=== PATIENT | female | born 1990 | race Caucasian/White ===

== ENCOUNTER → 2018-02-15 15:45 | Outpatient (CLI) | payer MEDICAID, SELFPAY ==
[2018-02-15 16:09] LABS: COC Drug Screen Collection Only
== END ==
DX: Z79.899 Other long term (current) drug therapy (principal)

== ENCOUNTER 2019-10-24 14:22 | Emergency (ER) | payer MEDICAID, SELFPAY ==
[2019-10-24 15:07] VITALS: BP 119/76; PULSE 76; RESP 19; TEMP 36.8; O2SAT 100; BMI 24.0
--- NOTE | 2019-10-24 15:22 | HMH.EDUTC ---
[facility] Disposition Clinical Impression: Left otitis media Qualifiers: Otitis media type: suppurative Chronicity: acute Recurrence: non-recurrent Spontaneous tympanic membrane rupture: without spontaneous rupture Qualified Code(s): H66.002 - Acute suppurative otitis media without spontaneous rupture of ear drum, left ear Disposition: Home, Self-Care Condition on Discharge: Good Instructions: DI for Otitis Media (Middle Ear Infection)-Child Prescriptions: Amoxicillin [Amoxicillin 500mg Tab] 500 mg PO BID 10 Days #20 tab Transmission Status: Pending to Pending Sale To [facility] predniSONE [Deltasone 20mg tablet] 20 mg PO BID 30 Days #60 tab predniSONE [Prednisone 20mg Tab] 20 mg PO BID 5 Days #10 tab Transmission Status: Pending to Pending Sale To [facility] Referrals: Anel Mehta [Primary Care Provider] - Time of Disposition: 15:26 Medical Decision Making - Glynn Inquiry Pt receiving controlled substance: No Vital Signs: 10/24/19 15:07 Temperature 98.2 F Temperature Source Oral Pulse Rate [Right Brachial] 76 Respiratory Rate 19 Blood Pressure [Right Arm] 119/76 Blood Pressure Mean [Right Arm] 90 Blood Pressure Source [Right Arm] Automatic Cuff Blood Pressure Position [Right Arm] Sitting 02 Sat by Pulse Oximetry 100 Oxygen Delivery Method Room Air [facility] HPI - General Stated complaint: possible ear infection L ear/sinus problems Time Seen by Provider: 10/24/19 15:23 Mode of Arrival: Ambulatory Source of Information: Patient Limitations: No Limitations Description of Symptoms (Recalled from Triage Doc. by RN): PATIENT C/O LEFT EAR PAIN X 3 WEEKS HEENT Symptoms (Recalled from RN notes): Yes Resp Symptoms (Recalled from RN notes): No Skin Symptoms (Recalled from RN notes): No MS Symptoms (Recalled from RN notes): No Functional Status (Recalled from RN notes): WNL - History of Present Illness Provider Complaint: Left ear pain X 3 weeks. Low grade fever. Can't hear out of left ear. No vomiting or diarrhea. Some sinus pain and pressure. No sore throat. Onset (ago): week(s) (3) Relieving factors: none Exacerbating factors: none Associated symptoms: denies other symptoms Treatments prior to arrival: none - Related Data Previous Rx's Medication Instructions Recorded Amoxicillin [Amoxicillin 500mg Tab] 500 mg PO BID 10 Days #20 tab 10/24/19 predniSONE [Deltasone 20mg 20 mg PO BID 30 Days #60 tab 10/24/19 tablet] predniSONE [Prednisone 20mg 20 mg PO BID 5 Days #10 tab 10/24/19 Tab] Allergies Allergy/AdvReac Type Severity Reaction Status Date / Time hydrocodone [HYDROCODONE] Allergy Unknown THROAT Unverified 12/31/17 08:03 SWELLING Sulfa (Sulfonamide Allergy Unknown Unverified 12/31/17 08:03 Antibiotics) [SULFA (SULFONAMIDE ANTIBIOTICS)] sulfamethoxazole Allergy Unknown ITCHING Unverified 12/31/17 08:03 [From BACTRIM] trimethoprim [From BACTRIM] Allergy Unknown ITCHING Unverified 12/31/17 08:03 - Worker's Comp Is this a Worker's Comp case?: No [facility] History - Hepatitis A Screen Drug use history?: No High risk sexual behaviors?: No History of sexually transmitted infection?: No Currently employed?: No Childcare worker?: No Do you have indoor plumbing?: Yes Do you have electricity?: Yes Attestation statement:: This patient has been screened for Hepatitis A risk factors. I have reviewed the patient's past medical history: Yes - Social History Smoking Status: Current every day smoker Tobacco Type: cigarettes # Packs/Day (cigarettes): 1 Alcohol Intake: never Occupational Status: other ROS Obtained: Yes All systems reviewed & no additional complaints - ENT Ears, Nose, Mouth, and Throat: Reports otalgia, Reports hearing loss Physical Exam - General General appearance: alert, in no apparent distress - Eye Eye exam: Present: PERRL - ENT ENT exam: Present: normal oropharynx - Expanded ENT Exam TM/Canal exam: L
[2019-10-24 15:27] VITALS: BP 119/76; PULSE 76; RESP 19; TEMP 36.8; O2SAT 100
== END 2019-10-24 15:33 | disposition home or self-care (01) ==
PROVIDERS: Emergency Provider Physician Assistant; PCP Family Medicine Addiction Medicine
DX: H66.002 Acute suppurative otitis media without spontaneous rupture of ear drum, left ear (principal); F17.210 Nicotine dependence, cigarettes, uncomplicated; Z79.899 Other long term (current) drug therapy; Z88.2 Allergy status to sulfonamides; Z88.5 Allergy status to narcotic agent; F33.1 Major depressive disorder, recurrent, moderate
CPT/HCPCS: 99201

== ENCOUNTER 2019-11-17 20:14 | Emergency (ER) | payer MEDICAID, SELFPAY ==
[2019-11-17 20:26] VITALS: BP 114/68; PULSE 86; RESP 19; TEMP 36.9; O2SAT 98; BMI 25.7
[2019-11-17 20:28] LABS: UTC Strep Screen (Rapid) Negative (Negative)
--- NOTE | 2019-11-17 20:31 | HMH.EDUTC ---
[facility] Disposition Clinical Impression: Otitis media Qualifiers: Otitis media type: unspecified Laterality: right Qualified Code(s): H66.91 - Otitis media, unspecified, right ear Disposition: Home, Self-Care Condition on Discharge: Good Instructions: Middle Ear Infection, Middle Ear Infections (Alternative Therapy), Cefdinir Additional Instructions: *Monitor Temp, Over the counter Motrin or Tylenol as directed/as needed Tylenol every 4 hours and Motrin every 6 hours (as long as your family doctor has told you that you can take it) for fever or pain. and straight to ER if unable to lower temp less than 101.0 after medication given *Warm salt water gargles may help to soothe the throat *Throat Lozenges *Warm fluids like tea with honey may help to soothe the throat *Sleep elevated *Humidifier/Vaporizer *Flonase 2 sprays in each nostril daily but be aware that it may take 2-3 days before you notice improvement Take medication as prescribed Follow up with Family Doctor if no improvement or any worsening of symptoms Follow up IMMEDIATELY for new or worsening symptoms or no Noticeable improvement over the next 48-72 hours. 911 for difficulty breathing or swallowing Prescriptions: Fluticasone Propionate [Flonase 50mcg nasal spray 16gm] 1 - 2 spr NS DAILY #1 bottle Transmission Status: Pending to [facility] Cefdinir [Omnicef 300mg Capsule] 300 mg PO BID #20 cap Transmission Status: Pending to [facility] Referrals: Anel Mehta [Primary Care Provider] - As needed Forms: Work/School Release Time of Disposition: 20:39 Medical Decision Making - Glynn Inquiry Pt receiving controlled substance: No Glynn was queried for this patient: No Vital Signs: 11/17/19 20:26 Temperature 98.4 F Temperature Source Oral Pulse Rate [Right Brachial] 86 Respiratory Rate 19 Blood Pressure [Right Arm] 114/68 Blood Pressure Mean [Right Arm] 83 Blood Pressure Source [Right Arm] Automatic Cuff Blood Pressure Position [Right Arm] Sitting 02 Sat by Pulse Oximetry 98 Oxygen Delivery Method Room Air - Lab Data Lab results reviewed: Yes: I reviewed the patient's lab results. Lab Results 11/17/19 20:27: Strep Scn Rapid Clinic Negative Orders (Tests/Meds): ORDERS Category Date Time Status Strep Screen Confirmation Stat Micro 11/17/19 20:27 Received [facility] HPI - General Stated complaint: Ear pain, sore throat, nausea Time Seen by Provider: 11/17/19 20:31 Mode of Arrival: Ambulatory Source of Information: Patient Limitations: No Limitations Description of Symptoms (Recalled from Triage Doc. by RN): PATIENT C/O EAR PAIN, SORE THROAT, AND NAUSEA X 1 WEEK HEENT Symptoms (Recalled from RN notes): Yes Resp Symptoms (Recalled from RN notes): No Skin Symptoms (Recalled from RN notes): No MS Symptoms (Recalled from RN notes): No Functional Status (Recalled from RN notes): WNL - History of Present Illness Provider Complaint: Patient states that she has been having pain in her left ear and sore throat for over a week and nausea on and off State that today she had several eppisodes of vomiting and still having pain in her ears so she came in to get checked - Related Data Previous Rx's Medication Instructions Recorded Amoxicillin [Amoxicillin 500mg Tab] 500 mg PO BID 10 Days #20 tab 10/24/19 predniSONE [Deltasone 20mg 20 mg PO BID 30 Days #60 tab 10/24/19 tablet] predniSONE [Prednisone 20mg 20 mg PO BID 5 Days #10 tab 10/24/19 Tab] Cefdinir [Omnicef 300mg Capsule] 300 mg PO BID #20 cap 11/17/19 Fluticasone Propionate [Flonase 1 - 2 spr NS DAILY #1 bottle 11/17/19 50mcg nasal spray 16gm] Allergies Allergy/AdvReac Type Severity Reaction Status Date / Time hydrocodone [HYDROCODONE] Allergy Unknown THROAT Unverified 12/31/17 08:03 SWELLING Sulfa (Sulfonamide Allergy Unknown Unverified 12/31/17 08:03 Antibiotics) [SULFA (SULFONAMIDE ANTIBIOTICS)
[2019-11-17 20:36] LABS: UTC Pregnancy Test, Urine Negative (Negative)
[2019-11-17 20:40] VITALS: BP 114/68; PULSE 86; RESP 19; TEMP 36.9; O2SAT 98
== END 2019-11-17 20:45 | disposition home or self-care (01) ==
PROVIDERS: Emergency Provider Nurse Practitioner; PCP Family Medicine Addiction Medicine
DX: H66.91 Otitis media, unspecified, right ear (principal); F17.210 Nicotine dependence, cigarettes, uncomplicated; Z88.0 Allergy status to penicillin; Z88.5 Allergy status to narcotic agent
CPT/HCPCS: 81025; 87880; 99201; 99202

== ENCOUNTER → 2021-01-03 11:50 | Outpatient (CLI) | payer MEDICAID, SELFPAY | PROVIDERS: Visit Provider Nurse Practitioner | DX: Z20.822 Contact with and (suspected) exposure to COVID-19 (principal) | CPT/HCPCS: C9803; U0003; U0005 ==

== ENCOUNTER → 2021-10-26 16:26 | Outpatient (CLI) | payer MEDICAID, SELFPAY ==
[2021-10-26 18:04] LABS: Basophils # 0.1 K/mm3 (0-0.2); Basophils % 1.1 % (0.1-2.0); Eosinophils # 0.1 K/mm3 (0.0-0.4); Eosinophils % 1.4 % (0.1-12.0); Hematocrit 38.4 % (37.0-47.0); Hemoglobin 13.4 g/dL (12.2-16.2); Lymphocytes # 2.2 K/mm3 (0.7-4.5); Lymphocytes % 43.3 % (10-50); Mean Corpuscular HGB Conc 34.9 g/dL (31.8-35.4); Mean Corpuscular Hemoglobin 30.6 pg (27.0-31.2); Mean Corpuscular Volume 87.8 fl (81-99); Mean Platelet Volume 7.3 fl (7.4-10.4); Monocytes # 0.2 K/mm3 (0.1-1.0); Monocytes % 4.6 % (1.7-9.3); Neutrophils # 2.5 K/mm3 (1.8-7.8); Neutrophils % 49.7 % (37.0-80.0); Platelet Count 297 K/mm3 (142-424); Red Blood Count 4.38 M/mm3 (4.20-5.40); Red Cell Distribution Width 13.4 % (11.5-17.5); White Blood Count 5.1 K/mm3 (4.8-10.8)
[2021-10-26 19:13] LABS: Chloride 104 mmol/L (98-107)
[2021-10-26 19:14] LABS: Potassium 4.6 mmoL/L (3.5-5.1); Sodium 138 mmol/L (136-145)
[2021-10-26 19:16] LABS: Bilirubin,Unconjugated 0.2 mg/dL (0.0-1.1); Blood Urea Nitrogen 11 mg/dl (7-17); Estimated Glomerular Filt Rate 99 ml/min (>60); GFR (African American) 120 ML/MIN (>60)
[2021-10-26 19:17] LABS: Alanine Aminotransferase 19 U/L (12-78); Albumin Level 4.8 g/dl (3.5-5.0); Alkaline Phosphatase 59 U/L (38-126); Anion Gap 10.6 mEq/L (5-15); Aspartate Amino Transferase 38 U/L (14-36); Bilirubin,Direct 0.2 mg/dl (0.0-0.4); Bilirubin,Indirect 0.2 mg/dL (0.0-0.9); Bilirubin,Total 0.4 mg/dl (0.2-1.3); Calcium 9.6 mg/dl (8.4-10.2); Carbon Dioxide 28 mmol/L (22.0-30.0); Glucose 82 mg/dl (74-100); Total Protein,Serum 7.6 g/dl (6.3-8.2)
[2021-10-28 07:19] LABS: HIV Screen 4th Generation wRfx Non Reactive (Non Reactive)
[2021-11-12 17:30] LABS: Hep A Ab, IgM Negative; Hepatitis B Core Antibody IgM Negative; Hepatitis B Surface Antigen Negative; Hepatitis C Antibody >11.0
== END ==
PROVIDERS: PCP Family Medicine; Visit Provider Psychiatry & Neurology Psychiatry
DX: F11.20 Opioid dependence, uncomplicated (principal); Z11.4 Encounter for screening for human immunodeficiency virus [HIV]
CPT/HCPCS: 36415; 80048; 80074; 80076; 85025; 86703; G0432

== ENCOUNTER 2024-03-31 09:31 | Outpatient (CLI) | payer MEDICAID, SELFPAY ==
[2024-03-31 18:18] LABS: Basophils % 0.8 % (0.1-2.0); Eosinophils # 0.1 K/mm3 (0.0-0.4); Eosinophils % 2.5 % (0.1-12.0); Hematocrit 40.6 % (37.0-47.0); Hemoglobin 13.3 g/dL (12.2-16.2); Lymphocytes # 2.2 K/mm3 (0.7-4.5); Lymphocytes % 42.2 % (10-50); Mean Corpuscular HGB Conc 32.8 g/dL (31.8-35.4); Mean Corpuscular Hemoglobin 27.8 pg (27.0-31.2); Mean Corpuscular Volume 84.8 fl (81-99); Monocytes # 0.3 K/mm3 (0.1-1.0); Monocytes % 6.1 % (1.7-9.3); Neutrophils # 2.5 K/mm3 (1.8-7.8); Platelet Count 271 K/mm3 (142-424); Red Blood Count 4.79 M/mm3 (4.20-5.40); Red Cell Distribution Width 13.5 % (11.5-17.5); White Blood Count 5.3 K/mm3 (4.8-10.8)
[2024-03-31 19:30] LABS: Alanine Aminotransferase 53 U/L (12-78); Albumin Level 4.3 g/dl (3.5-5.0); Albumin/Globulin Ratio 1.7 (1.1-1.8); Alkaline Phosphatase 88 U/L (38-126); Aspartate Amino Transferase 48 U/L (14-36); Bilirubin,Total 0.2 mg/dl (0.2-1.3); Blood Urea Nitrogen 16 mg/dl (7-17); Calcium 9.6 mg/dl (8.4-10.2); Carbon Dioxide 27 mmol/L (22.0-30.0); Chloride 105 mmol/L (98-107); Chol/HDL Ratio 4.6 (1-3.5); Cholesterol 155 mg/dl (140-200); Estimated Glomerular Filt Rate 83 ml/min (>60); GFR (African American) 101 ML/MIN (>60); Globulin 2.6 g/dL (1.3-3.2); Glucose 96 mg/dl (74-100); HDL Cholesterol 34 mg/dl (40-60); Sodium 139 mmol/L (136-145); Total Protein,Serum 6.9 g/dl (6.3-8.2); Triglycerides 168 mg/dl (30-150); VLDL Cholesterol 34 mg/dL (0-40)
[2024-03-31 19:36] LABS: Anion Gap 11.3 mEq/L (5-15); Potassium 4.3 mmoL/L (3.5-5.1)
[2024-03-31 19:57] LABS: 25-OH Vitamin D, Total 31.2 ng/mL (30-100)
[2024-03-31 20:10] LABS: Thyroid Stimulating Hormone 2.33 uIU/mL (0.465-4.68)
== END 2024-03-31 23:59 | disposition home or self-care (01) ==
LOC: LAB.DROPOF 04-01 13:55
PROVIDERS: PCP Family Medicine; Visit Provider Family Medicine
DX: Z76.89 Persons encountering health services in other specified circumstances (principal)
CPT/HCPCS: 80053; 80061; 82306; 83036; 84443; 85025

== ENCOUNTER 2024-05-14 22:43 | Outpatient (CLI) | payer OTHER, SELFPAY ==
[2024-05-15 11:54] LABS: NT Pro Brain Natriuretic Pep. < 20.0 pg/mL (0-125)
[2024-05-15 13:56] LABS: Hepatitis C Ab Qual. W/ RFX REACTIVE (Negative)
[2024-05-15 16:02] LABS: HIV Combo NEGATIVE (Negative)
== END 2024-05-14 23:59 | disposition home or self-care (01) ==
LOC: LAB.DROPOF 22:43
PROVIDERS: PCP Family Medicine; Visit Provider Family Medicine
DX: Z11.59 Encounter for screening for other viral diseases (principal); R60.9 Edema, unspecified
CPT/HCPCS: 83880; 86803; 87389; 87522

== ENCOUNTER 2025-02-16 07:32 | Emergency (ER) | payer BC, SELFPAY ==
--- OUTSIDE RECORDS SUMMARY | 2016-10-17 10:14 | XMS_ITS | Continuity of Care Document ---
Author Organization [facility] Address [address] [place] [phone] Phone Care Team Providers Care Lamination Operator Name Role Phone Moni DYER DNP, Gari Michelle Unavailable U navailable Allergies, Adverse Reactions, Alerts Substance Reaction Status Criticality Sulfa (Sulfonamide Antibiotics) hiveshives Active No Information Medications Medication Instructions Dosage Effective Dates (start - stop) Status Comments Augmentin 875 mg-125 mg tablet take 1 tablet by oral route every 12 hours for 7 1 tablet - No Longer Active Procedures Procedure Date New Assessment URINALYSIS, AUTO, W/O SCOPE Test, Urine Patient Transportation PREV VISIT, NEW, AGE 18-39 ROUTINE VENIPUNCTURE Advance Directives Directive Yes / No Effective Date File Name No Information Encounters Encounter Description Practice Location Reason(s) For Visit Diagnoses Date Provider Providers Copied on Encounter [facility], [address] [place] [address], [id number], tel:[phone] [facility] No Information Moni Peña. [address] [place] [address], [id number], . tel:[phone] PREV VISIT, NEW, AGE 18-39 [facility], [address] [place] [address], [id number], tel:[phone] [facility] Preventive exam (chief complaint)T reatment center visit (chief complaint)d epression (chief complaint) Encntr for general adult medical exam w/o abnormal findingsBody mass index (BMI) 25.0-25.9, adultEncounter for screening for other disorderOther psychoactive substance abuse, uncomplicatedEncou nter for screening for respiratory tuberculosisDental cariesDepressionBi lateral otitis media 7 Moni Peña. [address] [place] [address], [facility], [place]. tel:[phone] Referring Provider: Raul Montenegro, [address] [place] [address], [facility]. tel:[phone] [facility] Provider: Luanne Olson. Family History Family Member Type Diagnosis Age At Onset Mother Problem (finding) hypertension Father Problem (finding) Alive and well Payers Payer name Insurance type Covered democrat ID Authoriza tion(s) No Information Social History Type Description Quantity Date Captured Comments Alcohol Use Details Unknown Caffeine Use Details Unknown Tobacco Use Status Smoking Status No Information Sex Female Gender Identity Female Chief Complaint And Reason For Visit No Information Reason For Referral Reason For Referral No Information Plan Of Treatment Date Type Action Status Goal General Medical Exam. Due on due Goal Tdap. Due on due Goal Flu (split) (3 yrs or older) . Due on due Goal BMI calculated and plan docu mented. Due on due Goal CBC w/diff. Due on 17 due Goal Hte-[id number]-jfpgv. Due on Oct due Goal PHQ. Due on due Goal Dietitian Referral- Abnormal BMI. Due on due Goal General Medical Exam. Due on due Goal Tdap. Due on due Goal Breast exam. Due on 017 due Goal PHQ. Due on due Goal Dietitian Referral- Abnormal BMI. Due on due Goal Flu (split) (3 yrs or older) . Due on due Goal [id number]. Due on Sep due Goal CBC w/diff. Due on 17 due Goal BMI calculated and plan docu mented. Due on due Goal Lifestyle education regardin g diet completed Goal Tobacco cessation counseling completed Referral Ordered: Referrals: Dentistry. Evaluate and treat ordered Referral Referred To: mamie Ordered: Referrals: mamie Appointment date/timeframe: 10/25/2016 ordered History Of Present Illness Encounter Date Complaint History Of Prese nt Illness Preventive exam : 2. Donna ty: : 2. The patient states she uses none for control. Last LMP was 06/17/2016. Her menses is irregular. Negative for: breast discharge, breast lump(s) and breast pain. Positive for: breast self exam. Associated symptoms include difficulty falling sleep. The patient does use tobacco. She has been exposed to passive smoke. Additional information: Last pap >5 years ago and was abnormal. She did follow up but doesn't remember the treatment. Has history of ovarian cyst. Denies family history of breast cancer. Treatment center visit The sympt oms began 8 days ago. The symptoms occur daily. Has been at [facility] x[facility] days. She reports history of drug abuse. This is her first time in [facility]. She is there by [facility]. She is currently being treated for a sinus infection and ear infection with an antibiotic. She c/o difficulty hearing in left ear. Has a couple days left on antibiotics. depression This is an initi al visit. The patient reports functioning as somewhat difficult. The patient presents with depressed mood, difficulty concentrating, difficulty falling asleep, diminished interest or pleasure, feelings of guilt and loss of appetite but denies thoughts of or suicide. The depression is associated with headache. Additional information: Pt is agreeable to counseling at [facility]. She would like to discuss an antidepressant. Functional Status Date Functional Assessmen t No Information Instructions Date Instruction Additional Infor lyle Continue on Augmenti n as currently on. Left ear TM perforation. Related to Bilateral otitis media Refer to [facility] for well woman exa m. Related to Encntr for general adult medical exam w/o abnormal findings Discussed and stable at this tana e. Related to Depression Refer to [facility]. Related to Denta l caries Will check QG today. Related to Encounter for screening for respiratory tuberculosis SMAST/DAST completed and discussed. [facility] order for [facility]. Related to Other psychoactive substance abuse, uncomplicated Emotional support education Rela sharda to Encounter for screening for other disorder Lifestyle education regarding di et Related to Body mass index (BMI) 25.0-25.9, adult Giving encouragement to exercise Related to Body mass index (BMI) 25.0-25.9, adult Assessments Type Assessment Date No Information Patient Care Teams Name Effective Dates (start - stop) Status Members No Information
--- OUTSIDE RECORDS SUMMARY | 2024-03-22 05:30 | XMS_ITS ---
Author Organization [facility] Address [address] [place] [address] Care Team Providers Care Configuration Analyst Name Role Phone [facility] Unavailable [phone] REASON FOR VISIT FOLLOW UP GLP1 Encounters Encounter Location Date Provider Diagnosis [facility] [address] [place] [address] 03/22/2024 [facility] Plan Of Treatment No Information Progress Notes * Ruchi ARANDADOB: [birth year] (34 yo F)Acc No.[id number]:03/22/2024 Progress Notes Patient: Ruchi VALVERDE Provider: Alfred BARTON :1990 A ge:33 Y S ex:Female Date:03/22/2024 Phone: Address:[address] [place], [place] [phone] Subjective: * Chief Complaints: * 1 . FOLLOW UP GLP1. * Medical History: Objective: * Vitals: Assessment: Plan: * Treatment: * Billing Information: * Visit Code: * Procedure Codes: * Electronic signature of [facility] on 02/16/2025 at 08:14 AM EST Sign off status: Pending * Provider: Alfred AVILES [facility] Date: 0 03/22/2024 Generated for Tatiana wallace/Nabila/Latoya on: 04/19/2024 08:14 AM EST
--- OUTSIDE RECORDS SUMMARY | 2024-08-23 16:30 | XMS_ITS ---
Author Organization [facility] Address [address] [place] [address] Care Team Providers Care Loom Operator Name Role Phone Migration, Provider Unavailable Unavailable Allergies Allergen (clinical drug ingredient) Drug/Non Drug Allergy documented on EMR Reaction Allergy Type Onset Date Status Substance with sulfonamide structure and antibacterial mechanism of action (substance) SULFA (uncoded) Unknown Allergy Active Sulfamethoxazole Unknown Drug Allergy Active REASON FOR VISIT [facility] Conversion Encounter Medications Medication SIG (Take, Route, Frequency, Duration) Notes Start Date End Date Status traZODone HCl 50 MG Tablet 1 tab(s) oral ly once a day (at bedtime); Duration: 30 day(s) 06/26/2018 Active rOPINIRole HCl 0.5 MG Tablet 1 tab(s) orally once a day bedtime; Duration: 30 day(s) 06/26/2018 Active hydrOXYzine HCl 25 MG Tablet 1 tab(s) orally 4 times a day prn 06/26/2018 Active Encounters Encounter Location Date Provider Diagnosis [facility] [address] [place] [address] 08/23/2024 Provider Migration Insomnia, unspecified G47.00 ; Restless legs syndrome G25.81 and Anxiety disorder, unspecified F41.9 Assessments Encounter Date Diagnosis (ICD Code) Assessment Notes Treatment Notes Treatment Clinical Notes Section Notes 08/23/2024 Insomnia, unspecified (ICD-10 - G47.00) 08/23/2024 Restless legs syndrome (ICD-10 - G25.81) 08/23/2024 Anxiety disorder, unspecified (ICD-10 - F41.9) Plan Of Treatment Medication Medication Name Sig Start Date Stop Date Notes traZODone HCl 50 MG Tablet 1 tab(s) oral ly once a day (at bedtime); Duration: 30 day(s) 06/26/2018 rOPINIRole HCl 0.5 MG Tablet 1 tab(s) or ally once a day bedtime; Duration: 30 day(s) 06/26/2018 hydrOXYzine HCl 25 MG Tablet 1 tab(s) or ally 4 times a day prn 06/26/2018 Progress Notes * Ruchi ARANDA NDOB:[birth year] (34 yo F)Acc No.[id number]:08/23/2024 Patient: Ruchi Raman Provider: :1990 A ge:33 Y S ex:Female Date:08/23/2024 Address:[address] [place] [address], [facility] Subjective: * Chief Complaints: * [facility] * Allergies: S ulfamethoxazoleSULFA Assessment: * Assessment: 1. I nsomnia, unspecified - G47.00 (Primary) 2 . R estless legs syndrome - G25.81 3 . A nxiety disorder, unspecified - F41.9 Plan: * Treatment: 2. R estless legs syndrome Start rOPINIRole HCl Tablet, 0.5 MG, 1 tab(s), orally, once a day bedtime, 30 day(s), 30, Refills 1. 3. A nxiety disorder, unspecified Start hydrOXYzine HCl Tablet, 25 MG, 1 tab(s), orally, 4 times a day prn, 120, Refills 1. ? * Electronic signature of Prov ider Migration on 02/16/2025 at 08:13 AM EST Sign off status: Pending * Provider: Date: 0 08/23/2024 Generated for Tatiana wallace/Nabila/Latoya on: 04/19/2024 08:13 AM EST
--- OUTSIDE RECORDS SUMMARY | 2024-10-18 04:00 | XMS_ITS ---
Author Organization [facility] Address [address] [place] [phone] Phone [phone] Care Team Providers Care Supervisor Assembly Stock Name Role Phone Mei Butler Unavailable [phone] Migration, Provider Unavailable Unavailable REASON FOR VISIT [facility] Encounters Encounter Location Date Provider Diagnosis [address] [address] 10/18/2024 Provider Migration Plan Of Treatment No Information Progress Notes * GEETHA ARANDADOB: [birth year] (34 yo F)Acc No.[id number]:10/18/2024 Patient: Tj GEETHA MONTANEZ :1990 A ge:33 Y S ex:Female Address:[address] [place] [address] Subjective: * Chief Complaints: * E [facility] * * Date:
--- OUTSIDE RECORDS SUMMARY | 2024-10-19 04:00 | XMS_ITS ---
Author Organization [facility] Address [address] [place] [phone] Phone [phone] Care Team Providers Care Technology Coach Name Role Phone Mei Butler Unavailable [phone] Migration, Provider Unavailable Unavailable Allergies Allergen (clinical drug ingredient) Drug/Non Drug Allergy documented on EMR Reaction Allergy Type Onset Date Status Substance with sulfonamide structure and antibacterial mechanism of action (substance) SULFA (SULFONAMIDE ANTIBIOTICS) (uncoded) Unknown Allergy Active sulfamethoxazole / trimethoprim Bactrim Unknown Drug Allergy Active REASON FOR VISIT [facility] Medications Medication SIG (Take, Route, Frequency, Duration) Notes Start Date End Date Status Mirtazapine 30 MG Tablet Oral Active Sublocade 100 mg/0.5 mL Solution Prefilled Syringe Subcutaneous A ctive Escitalopram Oxalate 20 MG Tablet Oral Active Social History Social History Additional Details Category Social Info Options Details Migrated Social History Migrated Social History Alcohol Intake: Moderate 03/13/2023,Tobacco Years: Current every day smoker 03/13/2023 Encounters Encounter Location Date Provider Diagnosis [address] [address] 10/19/2024 Provider Migration Plan Of Treatment No Information Progress Notes * GEETHA ARANDADOB: [birth year] (34 yo F)Acc No.[id number]:10/19/2024 Patient: GEETHA VALVERDE :1990 A ge:33 Y S ex:Female Address:[address] [place] [address], [phone] Subjective: * Chief Complaints: * E MR[facility] * Family History: F ather: Diabetes mellitus . M aternal Aunt: Diabetes mellitus . M other: Heart disease . P aternal Grandfather: Diabetes mellitus . P aternal Grandmother: Kidney disease . * Social History: M igrated Social History: M igrated Social History: Alcohol Intake: Moderate 03/13/2023,Tobacco Years: Current every day smoker 03/13/2023. * Medications: T akingMirtazapine 30 MG Tablet Oral Escitalopram Oxalate 20 MG Tablet Oral Sublocade 100 mg/0.5 mL Solution Prefilled Syringe Subcutaneous Taking Mirtazapine 30 MG Tablet Oral Taking Escitalopram Oxalate 20 MG Tablet Oral Taking Sublocade 100 mg/0.5 mL Solution Prefilled Syringe Subcutaneous * Allergies: B actrim: AllergySULFA (SULFONAMIDE ANTIBIOTICS): Allergy * * Date:
[2025-02-16 07:35] VITALS: BP 146/87; PULSE 88; RESP 18; TEMP 36.9; O2SAT 99; BMI 33.2
[2025-02-16 07:39] VITALS: BP 146/87; PULSE 89; O2SAT 95
--- NOTE | 2025-02-16 07:51 | HMH.EDGENADL ---
Discharge Plan Disposition Patient Disposition: Home, Self-Care Condition: Good Prescriptions Prescriptions: New ondansetron 4 mg tablet,disintegrating 4 mg PO .every 8 hours prn PRN (Reason: nausea and vomiting) 4 Days Qty: 12 0RF No Action buprenorphine-naloxone 8-2 mg tablet, sublingual 1 tab SUBLINGUAL furosemide [Lasix] 20 mg tablet 20 mg PO DAILY PRN (Reason: edema) Qty: 14 3RF metformin 500 mg tablet See Rx Instructions .ROUTE .COMPLEX Qty: 90 2RF Dose Instruction: TAKE ONE TABLET BY MOUTH ONCE A DAY Rx Instructions: TAKE ONE TABLET BY MOUTH ONCE A DAY mirtazapine 30 mg tablet See Rx Instructions .ROUTE .COMPLEX Qty: 30 5RF Dose Instruction: TAKE ONE TABLET BY MOUTH AT BEDTIME Rx Instructions: TAKE ONE TABLET BY MOUTH AT BEDTIME escitalopram oxalate 20 mg tablet See Rx Instructions .ROUTE .COMPLEX Qty: 30 5RF Dose Instruction: TAKE ONE TABLET BY MOUTH ONCE A DAY FOR DEPRESSION Rx Instructions: TAKE ONE TABLET BY MOUTH ONCE A DAY FOR DEPRESSION Zepbound 2.5 mg/0.5 mL pen injector 2.5 mg SQ WEEKLY Qty: 2 2RF Rx Instructions: for 4 weeks Mounjaro 2.5 mg/0.5 mL pen injector 2.5 mg SQ WEEKLY Qty: 2 2RF Rx Instructions: for 4 weeks Referrals Follow up/Referrals: Amita Cavazos APRN [Primary Care Provider, Family Practice] - See instructions Activity Restrictions/Add. Instructions Additional Instructions/Restrictions: Please return to the ER if you are unable to tolerate p.o. intake. I will prescribe you Zofran for home for nausea/ vomiting. Follow-up with your primary care provider and return to the ER if symptoms persist or worsen. Thank you for allowing us to care for you. [facility]. Clinical Impressions Clinical Impression: Upper respiratory infection, viral Instructions Patient Instructions: DI for Diarrhea and Traveler's Diarrhea in Adults, DI for Diarrhea and Traveler's Diarrhea in Children, DI for Nausea in Adults, DI for Nausea in Children Print Language Print Language: Kinyarwanda Discharge ED Provider: Jose Alberto Raza JR General Adult HPI General Chief complaint: Nausea/Vomiting/Diarrhea Stated complaint: N/V/D, Headache Time Seen by Provider: 02/16/25 07:44 History of Present Illness HPI narrative: 34-year-old female patient with previous history of IV drug use, currently on Suboxone, cured hepatitis C, presents to the emergency department for evaluation of 2 days of nausea, vomiting, diarrhea, cough, and bodyaches. Patient also endorses intermittent mild headache. She is denying any current pain at this time. No headache, blurry vision, focal deficits, neck pain, fever, chest pain, shortness breath, or abdominal pain. She is nontender to her abdomen upon initial evaluation. She arrives afebrile, stable, no acute distress. Initially refusing labs, IV, fluids. Related Data Home Medications ?Medication ?Instructions ?Recorded ?Confirmed buprenorphine 8 mg-naloxone 2 mg 1 tab sublingual 01/18/21 08/14/24 sublingual tablet Previous Rx's ?Medication ?Instructions ?Recorded furosemide 20 mg tablet (Lasix) 20 mg PO DAILY PRN edema #14 tabs 05/14/24 metformin 500 mg tablet See Rx Instructions .Route 10/03/24 .COMPLEX #90 tabs escitalopram oxalate 20 mg tablet See Rx Instructions .Route 10/13/24 .COMPLEX #30 tabs mirtazapine 30 mg tablet See Rx Instructions .Route 10/13/24 .COMPLEX #30 tabs tirzepatide (weight loss) 2.5 2.5 mg (0.5 mL) SQ WEEKLY #2 mL 10/24/24 mg/0.5 mL subcutaneous pen injector (Zepbound) tirzepatide 2.5 mg/0.5 mL 2.5 mg (0.5 mL) SQ WEEKLY #2 mL 10/24/24 subcutaneous pen injector (Mounjaro) ondansetron 4 mg disintegrating 4 mg PO .every 8 hours prn PRN 02/16/25 tablet nausea and vomiting 4 days #12 tabs Allergies Allergy/AdvReac Type Severity Reaction Status Date / Time hydrocodone (HYDROCODONE) Allergy Unknown THROAT Verified 08/14/24 10:51 SWELLING Sulfa (Sulfonamide Allergy Unknown Verified 08/14/24 10:51 Antibiotics) (SULFA (SULFONAMIDE ANTIBIOTICS)) sulfamethoxazole (From Allergy Unknown ITCHING Verified 08/14/24 10:51 BACTRIM) trimethoprim (From BACTRIM) Allergy Unknown ITCHING Verified 08/14/24 10:51 PFSH [facility] Disclaimer: The information contained in this section may have been updated after the patient was seen, as this information can be updated by other users. Medical History Left otitis media Otitis media Hepatitis C virus infection cured after antiviral drug therapy Other urethral stricture, female Miscarried within last 12 months Surgical History History of surgery on arm Family History Father Diabetes Mother Hypertension Heart disease Grandmother Cancer Mother Throat cancer Social History Smoking Status: Current every day smoker tobacco type: cigarettes packs per day: 1 years smoked: 20 quit status: considering quitting alcohol intake: former substance use type: denies use and former substance user current occupational status: employed and other Travel in the last 8 weeks?: None Have you lived/traveled outside US in past 30 days?: No Contact w/someone who lives/traveled outside US past 30 days?: No Exposure to someone with infectious disease in past 14 days?: No Do you have a fever (greater than 100.4 F or 38 C)?: No Have you tested positive for COVID-19?: No Exposed to someone with COVID-19 in past 14 days?: No Do you have a sore throat?: No Do you have a cough?: No Do you have any weakness?: No Do you have any diarrhea?: Yes Are you experiencing any unusual bleeding?: No Do you have any muscle aches/pain?: No Do you have any abdominal pain?: No Are you experiencing loss of taste or smell?: No Other Medical History Have you received the Pneumonia Vaccine: No ROS Obtained: Yes All systems reviewed & no additional complaints except as documented and Yes Systems reviewed as appropriate & no additional complaints except as documented Constitutional Constitutional: Reports system reviewed and no additional complaints, except as documented, Reports as per HPI, Reports body ache, Reports fatigue and Reports headache(s) ENT Ears, Nose, Mouth, and Throat: Reports system reviewed and no additional complaints, except as documented and Reports headache(s) Cardiovascular Cardiovascular: Denies chest pain Respiratory Respiratory: Denies shortness of breath and Reports cough Gastrointestinal Gastrointestingal: Reports diarrhea and vomiting; Denies abdominal pain Genitourinary Female Genitourinary: Reports system reviewed and no additional complaints, except as documented Musculoskeletal Musculoskeletal: Reports system reviewed and no additional complaints, except as documented and Reports as per HPI Integumentary/Breasts Skin/Breast: Reports system reviewed and no additional complaints, except as documented and Reports as per HPI Neurologic Neurologic: Reports system reviewed and no additional complaints, except as documented, Reports as per HPI and Reports headache(s) Endocrine Endocrine: Reports fatigue Physical Exam General General appearance: alert and in no apparent distress Head Head exam: atraumatic and normocephalic Eye Eye exam: Present normal appearance and PERRL ENT ENT exam: Present normal exam Chest Chest inspection: Present normal inspection Respiratory Respiratory exam: Present normal lung sounds bilaterally; Absent respiratory distress Cardiovascular Cardiovascular exam: Present regular rate and normal rhythm Abdominal Exam Abdominal exam: Present soft and normal bowel sounds; Absent distention, tenderness, guarding, rebound or rigidity Extremities Exam Extremities exam: Present normal inspection Back Exam Back exam: Present normal inspection and full ROM; Absent tenderness Neurological Exam Neurological exam: Present alert, oriented X3 and CN II-XII intact Skin Skin exam: Present warm and dry Medical Decision Making Medical Records Screening: Per USPSTF and CDC recommendations, given the prevalence of disease in our region, it is our hospital?s policy to screen for HIV and viral Hepatitis for all patients aged 18 and over and those with ongoing risk factors. [place]nn Inquiry Pt receiving controlled substance: No Vital Signs: 02/16/25 07:35 02/16/25 07:39 02/16/25 08:27 Temperature 98.5 F Temperature Source Oral Pulse Rate 89 Pulse Rate [Right] 88 Respiratory Rate 18 Blood Pressure 146/87 H Blood Pressure [Right Arm] 146/87 H Blood Pressure Mean 98 Blood Pressure Mean [Right Arm] 106 Blood Pressure Source [Right Arm] Automatic Cuff Blood Pressure Position [Right Arm] Supine 02 Sat by Pulse Oximetry 99 95 100 Oxygen Delivery Method Room Air Room Air Orders (Tests/Meds): ED MEDICATIONS Generic Name Dose Route Start Last Admin Trade Name Freq PRN Reason Stop Dose Admin Lactated Ringer's 1,000 mls @ 999 mls/hr 02/16/25 07:48 Lactated Ringer's 1000 Ml Bag IV 02/16/25 08:48 .Q1H1M ONE Discontinued Medications Generic Name Dose Route Start Last Admin Trade Name Freq PRN Reason Stop Dose Admin Ondansetron HCl 4 mg 02/16/25 07:48 Ondansetron 4mg/2ml Vial IV 02/16/25 07:49 ONCE ONE ORDERS Category Date Time Status Complete Blood Count Auto Diff Stat Lab 02/16/25 07:48 Ordered Comprehensive Metabolic Panel Stat Lab 02/16/25 07:48 Ordered Creatine Kinase Stat Lab 02/16/25 07:48 Ordered HIV Combo Stat Lab 02/16/25 08:26 Ordered Hepatitis C Ab Qual. W/ RFX Stat Lab 02/16/25 08:26 Ordered Mini Respiratory Panel Stat Lab 02/16/25 07:55 Ordered Urinalysis and Microscopic Stat Lab 02/16/25 08:28 Received Urine , HCG Qual. Stat Lab 02/16/25 08:28 Received Medical Decision Narrative: 34-year-old female with history of IV drug abuse, currently on Suboxone, history of hep C that has since been cured, presents to the emergency department for evaluation of nausea, vomiting, diarrhea, cough, body aches. Been going on for 2 days. No current headache, blurry vision, or focal deficits. Abdomen is nontender. Patient is initially refusing IV, IV fluids, and laboratory workup. Discussed with patient obtaining labs and giving IV fluids. She is declining IV placement at this time. She would like swab for respiratory viruses. Upon reevaluation, patient is tolerating p.o. intake without difficulty. She is able to ambulate without difficulty. She has remained afebrile, hemodynamically stable, in no acute distress throughout the course of the stay. Etiology likely influenza or unspecified viral URI especially with bodyaches, cough, and GI symptoms. Instruct[facility]. Clear for discharge this time. Return precaution given. Critical Care Critical Care Time Critical Care Time: No
--- OUTSIDE RECORDS SUMMARY | 2025-02-16 08:13 | XMS_ITS | Patient Health Record ---
Author Organization [facility]na [facility] Address [address] [place] [address] Phone [phone] Care Team Providers Care Truck Driver Flatbed Name Role Phone Mei Butler Unavailable [phone] Migration, Provider Unavailable Unavailable Reason For Referral No Information Medications Medication SIG (Take, Route, Frequency, Duration) Notes Start Date End Date Status Mirtazapine 30 MG Tablet Oral Active Sublocade 100 mg/0.5 mL Solution Prefilled Syringe Subcutaneous A ctive Escitalopram Oxalate 20 MG Tablet Oral Active Social History Social History Additional Details Category Social Info Options Details Migrated Social History Migrated Social History Alcohol Intake: Moderate 03/13/2023,Tobacco Years: Current every day smoker 03/13/2023 Problems Problem Type SNOMED Code ICD Code Onset Dates Problem Status W/U Status Risk Notes Problem Repeated prescription (999100922) Encounter for issue of repeat prescription (Z76.0) 3 Active confirmed Encounters Encounter Location Date Provider Diagnosis [facility] [address] [place] [address] 10/18/2024 Provider Migration [address] [address] 10/19/2024 Provider Migration Plan Of Treatment No Information Insurance Providers Payer Name Payer Address Payer Phone Subscriber Number Group Number Insured Name Patient Relationship to Insured Coverage Start Date Coverage End Date Passport By Awareness Card (Medicaid Replacement - [place]) [address] [address] GABRIELLA GILMORE [phone] [id number] GEETHA ARANDA Self - patient is the insured
--- OUTSIDE RECORDS SUMMARY | 2025-02-16 08:13 | XMS_ITS | Clinical Summary ---
Author Organization [facility] Address [address] [place] [address] Care Team Providers Care Intraoperative Neuro Tech Name Role Phone Emir Brooks MD Primary Care Provider [phone] Allergies Active Allergy Reactions Criticality Noted Date Comments Sulfamethoxazole-Trimethoprim Hives 2020 Sulfa Antibiotics Hives 10/28/2020 Medications buprenorphine-n aloxone (SUBOXONE) 8-2 MG per SL tablet 2 Active terbinafine (LamISIL) 250 MG tabletIndicatio ns:Toenail fungus Take 1 tablet by mouth Daily. 30 tablet 2 3 Active mirtazapine (REMERON) 30 MG tabletIndicatio ns:Depressed mood,Anxiety Take 1 tablet by mouth every night at bedtime. APPOINTMENT DUE 30 tablet 4 Active escitalopram (LEXAPRO) 20 MG tabletIndicatio ns:Depressed mood,Anxiety Take 1 tablet by mouth Daily. APPOINTMENT DUE 30 tablet 4 Active Active Problems Problem Noted Date Diagnosed Date Hepatitis C antibody test positive 10/28/2020 Other insomnia 10/28/2020 Depression 10/28/2020 History of miscarriage 10/28/2020 Opioid use disorder, moderat e, in early remission, on maintenance therapy 10/28/2020 Alcohol use disorder, mild, in early remission, abuse 10/28/2020 Immunizations Immunization Administration Dates Next Due DTaP, Unspecified 01/24/1996 Hep B, Adolescent or Pediatric 09/08/1996,1996,01/24/1996 Influenza Seasonal Injectable 12/16/2008 MMR 01/24/1996 OPV 01/24/1996 Td (TDVAX) 12/19/2002 Family History Medical History Relation Name Comments Kidney disease Maternal Aunt Cancer Maternal Grandfather Hyperlipidemia Maternal Grandfather Cancer Maternal Grandmother Heart attack Mother Heart disease Mother Hypertension Mother Cancer Paternal Grandfather Diabetes Paternal Grandfather Cancer Paternal Grandmother Relation Name Status Comments Father Alive Maternal Aunt Alive Maternal Grandfather Maternal Grandmother Alive Mother Alive Paternal Grandfather Paternal Grandmother Social History Tobacco Use Types Packs/Day Years Used Date Smoking Tobacco: Every Day Smokeless Tobacco: Never Tobacco Cessation:Ready to Q uit: Yes; Counseling Given: Yes Comments:1-2 per day Alcohol Use Standard Drinks/Week Comments Not Currently 0 (1 standard drink = 0.6 oz pur e alcohol) PHQ-2 Answer Date Recorded Retired PHQ-9: Brief Depression Severity Measure Score 0 10/13/2022 Abuse Screen Answer Date Recorded Unsafe at Home or Work/School Not on file Feels Threatened by Someone? Not on file 01/2023 Does Anyone Keep You from Co ntacting Others or Doint Things Outside the Home? Not on file 12/27/2022 Physical Sign of Abuse Present Not on file 1 Housing Stability Answer Date Recorded Current Living Arrangements Not on file 12/17 Potentially Unsafe Housing Conditions Not on baylee e 12/27/2022 Family and Community Support Answer Jayro e Recorded Help with Day-to-Day Activities Not on file 12/27/2022 Lonely or Isolated Not on file 12/27/2022 Employment Answer Date Recorded Do you want help finding or keeping work or a fredy b? Not on file 12/27/2022 Disabilities Answer Date Recorded Concentrating, Remembering, or Making Decisions Difficulty Not on file 12/27/2022 Doing Errands Independently Difficulty Not on fi le 12/27/2022 Education Answer Date Recorded Help with school or training? Not on file Preferred Language Not on file 12/27/2022 PHQ-2 Answer Date Recorded Retired PHQ-9: Brief Depression Severity Measure Score 0 10/13/2022 Comments Unknown Sex and Gender Information Value Date Recorded Sex Assigned at Not on file Legal Sex Female 11:48 AM EDT Gender Identity Not on file Sexual Orientation Not on file Last Filed Vital Signs Vital Sign Reading Time Taken Comments Blood Pressure 128/66 10/13/2022 2:54 PM EDT Pulse 70 10/13/2022 2:54 PM EDT Temperature 36.9 C (98.4 F) 10/13/2022 2:54 PM EDT Respiratory Rate 18 10/13/2022 2:54 PM EDT Oxygen Saturation 99% 10/13/2022 2:54 PM EDT Inhaled Oxygen Concentration - - Weight 99.2 kg (218 lb 12.8 oz) 10/13/2022 2:54 PM EDT Height 165.1 cm (5' 5 ) 10/13/2022 2:54 PM EDT Body Mass Index 36.41 10/13/2022 2:54 PM EDT Plan of Treatment Health Maintenance Due Date Last Done Comments Annual Gynecologic Pelvic and Breast Exam 1991 TDAP/TD VACCINES (2 - Tdap) 12/20/2002 12/19/2002 Pneumococcal Vaccine 0-49 (1 of 2 - PCV) 12/05/2010 PAP SMEAR 12/05/2012 ANNUAL PHYSICAL 10/28/2020 INFLUENZA VACCINE 10/17/2024 12/16/2008 HEPATITIS C SCREENING Completed 10/13/2022 Procedures Procedure Name Priority Date/Time Associated Diagnosis Comments HEPATITIS C RNA, QUANTITATIVE, PCR (GRAPH) Routine 10/13/2022 3:34 PM EDT Positive hepatitis C antibody test from Last 3 Months or Most Recently Relevant to Health Maintenance Results * Hepatitis C RNA, Quantitative, PCR (graph) (10/13/2022 3:34 PM EDT) Pathologist [facility] Hepatitis C Quantitation HCV Not Detected IU/mL [facility] Test Information Comment [facility] Comment:The quantitative ran ge of this assay is 15 IU/mL to 100 million IU/mL. Blood 10/13/2022 3:34 PM EDT 10/13/2022 Narrative [facility] ([facility]) - 10/16/2022 12:09 PM EDT Performed at: [address] [place] [id number] Toy Packer: Aleja Villarreal MD, Phone: [phone] Patient Fasting: N Emir Brooks MD LAB BLOOD ORDERABLES Final Resu lt [facility] ([facility] [address] [place] [address], [place] [phone] [facility] [address] [place] [address], [place] [phone] from Last 3 Months or Most Recently Relevant to Health Maintenance Care Teams Intraoperative Neuro Tech Relationship Specialty Start Date End Date Emir Brooks MD [address] [place] [id number] PCP - General Family Medicine 10/13/22
--- OUTSIDE RECORDS SUMMARY | 2025-02-16 08:14 | XMS_ITS | Patient Health Record ---
Author Organization [facility] Address [address] [place] [address] Care Team Providers Care Bistro Attendant Name Role Phone Migration, Provider Unavailable Unavailable Allergies Allergen (clinical drug ingredient) Drug/Non Drug Allergy documented on EMR Reaction Allergy Type Onset Date Status Substance with sulfonamide structure and antibacterial mechanism of action (substance) SULFA (uncoded) Unknown Allergy Active Sulfamethoxazole Unknown Drug Allergy Active Reason For Referral No Information Medications Medication [...] 4 times a day prn 06/26/2018 Active Social History Social History Social History Social Info Question Answer Notes Tobacco Use Current smoking status: Current Smoker Additional Details Category Social Info Options Details Social History Alcohol yes Drug use Heroin, meth, MJ Problems Problem Type SNOMED Code ICD Code Onset Dates Problem Status W/U Status Risk Notes Problem Anxiety disorder (490609844) Anxiety disorder, unspecified (F41.9) Active confirmed Problem Insomnia (129723485) Insomnia, unspecified (G47.00) Active confirmed Problem Restless legs syndrome (20304603) Restless legs syndrome (G25.81) Active confirmed Encounters Encounter Location Date Provider Diagnosis [facility] [address] [place] [address] 08/23/2024 Provider Migration Insomnia, unspecified G47.00 ; Restless legs syndrome G25.81 and Anxiety disorder, unspecified F41.9 Assessments Encounter Date Diagnosis (ICD Code) Assessment Notes Treatment Notes Treatment Clinical Notes Section Notes 08/23/2024 Insomnia, unspecified (ICD-10 - G47.00) 08/23/2024 Restless legs syndrome (ICD-10 - G25.81) 08/23/2024 Anxiety disorder, unspecified (ICD-10 - F41.9) Plan Of Treatment No Information Insurance Providers Payer Name Payer Address Payer Phone Subscriber Number Group Number Insured Name Patient Relationship to Insured Coverage Start Date Coverage End Date Passport by [employer] (Medicaid) [address] [address] GABRIELLA FERRELL [phone] [id number] Ruchi Stuart Self - patient is the insured Medical (General) History Surgical History Surgery Date(Month/Year) urethra stretched (R) arm Abscess
--- OUTSIDE RECORDS SUMMARY | 2025-02-16 08:15 | XMS_ITS | Patient Health Record ---
Author Organization [facility] Address [address] [place] [address] Care Team Providers Care Store Deli Manager Name Role Phone DEE PAZ Unavailable [phone] [facility] Unavailable [phone] VIET BAKER Unavailable [phone] Allergies Allergen (clinical drug ingredient) Drug/Non Drug Allergy documented on EMR Reaction Allergy Type Onset Date Status Sulfur Hives Drug Allergy Active Reason For Referral Reason evaluate and treat Diagnosis 1 Morbid obesity (E66. 01) Referral Organization [facility] david Referring Provider First Name VIET Referring Provider Last Name SAMUEL Referring Provider Speciality General Pr actice Referred Provider Specialty Nutrition Referral Priority Routine Referral Appointment Date 02/23/2024 Medications Medication SIG (Take, Route, Frequency, Duration) Notes Start Date End Date Status Mounjaro 2.5 MG/0.5ML Inject 2.5 MG Subcutaneous Once a week; Duration: 28 days 02/25/2024 Active Buprenorphine HCl-Naloxone HCl 8-2 MG Sublingual; Duration: 19 Days Active Social History Tobacco Use: Social History Observation Description Date Details (start date - stop date) Former Smoker NA - NA Tobacco Control (Standard) Question Answer Notes Tobacco use: Former smoker Problems Problem Type SNOMED Code ICD Code Onset Dates Problem Status W/U Status Risk Notes Problem Morbid obesity (706129211) Morbid obesity (E66.01) Active confirmed Vital Signs Height 65 in 02/23/2024 Patient Reported Normal Blood Pressure Patient Reported Normal Temperature Weight 245 lbs 02/23/2024 Patient Reported Normal Blood Pressure Patient Reported Normal Temperature BMI 40.77 kg/m2 02/23/2024 Patient Reported Normal Blood Pressure Patient Reported Normal Temperature Encounters Encounter Location Date Provider Diagnosis [facility] [address] [place] [address] 02/23/2024 VIET BAKER Morbid obesity E66.01 [facility] [address] [place] [address] 02/25/2024 VIET BAKER [facility] [address] [place] [address] 10/30/2024 DEE PAZ Assessments Encounter Date Diagnosis (ICD Code) Assessment Notes Treatment Notes Treatment Clinical Notes Section Notes 02/23/2024 Morbid obesity (ICD-10 - E66.01) Electronic Prior Authorization was requested for Mounjaro 2.5 MG/0.5ML Solution Pen-injector. Provider can order medication once approval received.TREATMENT PLAN: INITIAL VISIT GLP1 PRESCRIBED AND LAB ORDER Patient has cleared requirements for GLP1 agonist prescription by our service. Patient meets criteria by our service and has been deemed to have no absolute contraindications to this medication. Tolerance with regards to major changes to psychiatric health, ability to tolerate meals, GI symptoms, ability to perform expected activities in their daily lives will be monitored. Side effects and symptoms are provided to us by the patient in the chart. We have informed the patient of the necessity to research medication interactions, contraindications, and possible short/rat exterminator known and unknown effects these medications can cause. Our service does not recommend mcfp usage of these medications and we highly recommend PCP followup regularly. 1. Will prescribe 4 weeks of a GLP1 agonist (ozempic, wegovy, trulicity, mounjaro, zepbound). We will start at the lowest dose and proof of tolerance will be needed at every 4 week interval for consideration on dose increase. Please be aware that if your insurance requires prior authorization, we will submit it on your behalf to your insurance company. Final approval of medication coverage is determined by your insurance company. 2. Obtain labs - CBC, CMP, a1c, TSH, lipids, UA, test (if female). If already done by another prescriber within 6 months, please provide us information that these were obtained. 3. We recommend continued priming machine operator consultations and continued diet/exercise modifications. We can refer you to an online priming machine operator: [email or web address] 4. A video visit follow up will be scheduled in 4 weeks. Please note side effects can include but are not limited to nausea, vomiting, regurgitation of food, diarrhea, dehydration, kidney injury, abdominal pain, pancreatitis, low blood sugar, poor appetite, psychiatric changes, etc. If you are experiencing any of these side effects, please go to the ER immediately.TREATMEN T PLAN: FEMALE PATIENTS ONLY WHEN GLP1 PRESCRIBED You have been given an initial dose of the requested medication; however, we do not yet have laboratory results, including a negative test. If you feel comfortable doing a home test, you may do so and start the medication after it is confirmed negative. Otherwise, you will need to wait for the results ordered with the initial laboratory work and your initial igil-sh-fpuc visit with us. If there is any concern that you may be , or if you are not comfortable doing an at home test; DO NOT START THIS MEDICATION UNTIL YOU HAVE HAD A FOLLOW-UP VISIT.PATIENT EDUCATION: MOUNJARO This medicine is used for the following purposes: diabetes Type 2 weight loss Brand Name(s): Asaelusama Instructions Video instruction on how to self inject: [email or web address] This medicine is injected into the skin. Carefully follow the instructions for preparing this medicine before injection. Always inspect the medicine before using. The liquid should be clear or light yellow. Do not use the medicine if it contains any particles or if it has changed color. Store new medicine in the refrigerator until you are ready to use it. Do not allow them to freeze. Keep the medicine in its original container. If needed, this medicine may be stored at room temperature for 21 days or fewer. Protect medicine from light. Never use any medicine that has . Discard any remaining medicine after your dose is given. You should hear 2 clicks when you inject the medicine. This is normal. Change the location of the injection each time. Choose a location at least 1 inch from the last injection. Do not rub or massage the area where the injection was given. If you forget to use a dose on time, use it as soon as you remember. If it has been more than 4 days, skip the missed dose and use your next dose as scheduled. Do not use 2 doses of this medicine at one time. Drug interactions can change how medicines work or increase risk for side effects. Tell your health care providers about all medicines taken. Include prescription and zosw-kox-yqdpzbz medicines, vitamins, and herbal medicines. Speak with your doctor or pharmacist before starting or stopping any medicine. Tell your doctor if symptoms do not get better or if they get worse. This medicine may cause low blood sugar. Eat regular meals and exercise as instructed by your doctor. Tell your doctor if you have symptoms of low blood sugar such as nausea, sweating, cold skin, fast heartbeat, hunger, and irritability. This medicine can make control pills work less well. Ask your doctor or pharmacist how long you should use an extra form of control, such as condoms. Keep all appointments for medical exams and tests while on this medicine. Do not use more than 1 dose each week. Cautions Tell your doctor and pharmacist if you ever had an allergic reaction to a medicine. This medicine may increase the risk of cancer. Ask your doctor about the benefits and risks. Monitor your blood sugar as instructed by your doctor. Your ability to stay alert or to react quickly may be impaired by this medicine. Do not drive or operate machinery until you know how this medicine will affect you. Please check with your doctor before drinking alcohol while on this medicine. It is unknown if this medicine passes into breast milk. Ask your doctor before . Always carry an ID card or wear a medical alert bracelet showing that you are diabetic. Carry glucose tablets or hard candy with you in case you experience low blood sugar from this medicine. Ask your pharmacist how to properly throw away used needles or syringes. Do not share this medicine with anyone who has not been prescribed this medicine. Some patients have serious side effects from this medicine. Ask your pharmacist to show you the information from the Food and Drug Administration (FDA) and discuss it with you. Side Effects The following is a list of some common side effects from this medicine. Please go to the ER immediately if you are experiencing any side effects. decreased appetite constipation or diarrhea lack of energy and tiredness pain, redness, swelling near injection nausea and vomiting stomach upset or abdominal pain unusual or long-lasting hoarseness signs of kidney damage (such as change in urine color or bubbly urine) unusual growth or lump on the neck severe stomach pain that spreads to the back difficulty swallowing blurring or changes of vision severe or persistent vomiting A few people may have an allergic reaction to this medicine. Symptoms can include difficulty breathing, skin rash, itching, swelling, or severe dizziness. If you notice any of these symptoms, go to the ER immediately.PATIENT EDUCATION: WEIGHT LOSS Overview It can be a challenge to lose weight. But your doctor can help you make a weight-loss plan that meets your needs. You don't have to make a lot of big changes at once. A better idea might be to focus on small changes and stick with them. When those changes become habit, you can add a few more changes. Some people find it helpful to take an exercise or nutrition class. If you have questions, ask your doctor about seeing a registered dietitian or an customer solutions specialist. You might also think about joining a weight-loss support group. If you're not ready to make changes right now, try to pick a date in the future. Then make an appointment with your doctor to talk about when and how you'll get started with a plan. Follow-up care is a lopes part of your treatment and safety. Be sure to make and go to all appointments, and call your doctor if you are having problems. It's also a good idea to know your test results and keep a list of the medicines you take. How can you care for yourself at home? Set realistic goals. Many people expect to lose much more weight than is likely. A weight loss of 5% to 10% of your body weight may be enough to improve your health. Get family and friends involved to provide support. Talk to them about why you are trying to lose weight, and ask them to help. They can help by participating in exercise and having meals with you, even if they may be eating something different. Find what works best for you. If you do not have time or do not like to cook, a program that offers meal replacement bars or shakes may be better for you. Or if you like to prepare meals, finding a plan that includes daily menus and recipes may be best. Ask your doctor about other health professionals who can help you achieve your weight loss goals. A dietitian can help you make healthy changes in your diet. An customer solutions specialist or personal support worker can help you develop a safe and effective exercise program. A counselor or psychiatrist can help you cope with issues such as depression, anxiety, or family problems that can make it hard to focus on weight loss. Consider joining a support group for people who are trying to lose weight. Your doctor can suggest groups in your area. 02/23/2024 Other Follow the treatment plan as indicated by the provider. Take any medications as prescribed. If you have any questions about your prescription, ask the pharmacist. This treatment plan is based on the information you have provided to us today. Incomplete disclosure of your medical history, past treatments, or current medications may affect the effectiveness of this treatment. Call 911 anytime you think you may need emergency care. For example, call if:You have severe trouble breathing.You have a seizure.Call your doctor now or seek immediate medical care if:You have trouble breathing.You have a fever with a stiff neck or a severe headache.You have pain or pressure in your chest or belly.You have a fever or cough that returns after getting better.You feel very sleepy, dizzy, or confused.You are not urinating.You have severe muscle pain.You have severe weakness, or you are unsteady.You have medical conditions that are getting worse.Watch closely for changes in your health, and be sure to contact your doctor if:You do not get better as expected.You are having a problem with your medicine. You participated in a [facility] request, considered an asynchronous visit where you provide your symptoms and medical history, and a treatment plan is formulated based on your submission. A treatment plan and patient education were provided based on your submission. If symptoms persist or worsen, you should seek in-person care or call 911 immediately for further evaluation. Plan Of Treatment Pending Test Test Name Order Date COMPREHENSIVE METABOLIC PANEL (18729) CBC (INCLUDES DIFF/PLT) (6399) URINALYSIS, COMPLETE (5463) 02/23/2024 HEMOGLOBIN A1c (496) 02/23/2024 HCG, TOTAL, QL (8435) 02/23/2024 LIPID PANEL, STANDARD (7600) 02/23/2024 THYROID PANEL WITH TSH (7444) 02/23/2024 Insurance Providers Payer Name Payer Address Payer Phone Subscriber Number Group Number Insured Name Patient Relationship to Insured Coverage Start Date Coverage End Date [facility] Complete Care Medicaid 1 [facility] [address] [place], [place] [id number] [phone] . Ruchi Stuart Self - patient is the insured
[2025-02-16 08:27] VITALS: O2SAT 100
[2025-02-16 08:35] LABS: Microscopic, Urine URINE MICROSCOPIC (MICROSCOPIC)
--- NOTE | 2025-02-16 08:37 | PC.NURSE ---
Delay in labs/meds due to pt being a very difficult stick. is bedside attempting an US guided IV
[2025-02-16 08:45] VITALS: BP 143/83; PULSE 79; RESP 18; O2SAT 99
--- NOTE | 2025-02-16 08:47 | PC.NURSE ---
pt refused to be stuck for an IV at this time and states that she feels its not necessary at this time to have an IV. pt is okay with a PO challenge and getting discharged. pt educated by Dr. Raza at this time. pt was provided a Starry and crackers for the PO challenge.
[2025-02-16 08:51] LABS: Coronavirus 19, PCR Not Detected (NotDetected); Influenza A, PCR Not Detected (NotDetected); Influenza B, PCR Not Detected (NotDetected)
--- NOTE | 2025-02-16 08:53 | PC.NURSE ---
pt was able to successfully complete the PO challenge. Dr. Raza notified at this time.
[2025-02-16 08:58] VITALS: BP 140/93; PULSE 79; RESP 18; TEMP 36.9; O2SAT 98
[2025-02-16 09:10] LABS: Bilirubin,Urine Negative (Negative); Color,Urine YELLOW (Yellow); Glucose,Urine (UA) Negative (Negative); Ketones,Urine Negative (Negative); Leukocyte Esterase,Urine Negative (Negative); PH,Urine 6.0 (5.0-8.5); Protein,Urine Negative (Negative); Specific Gravity, Urine >= 1.030 (1.005-1.030); Urine Pregnancy, HCG Qual. Negative (Negative); Urobilinogen,Urine 0.2 EU/dl (0.2)
[2025-02-16 09:58] LABS: Bacteria,Urine Trace /lpf; RBC,Urine Occasional #/hpf (0-3); Squamous Epithelial Cell,Urine Occasional #/hpf (0-5); WBC,Urine Occasional #/hpf (0-3)
== END 2025-02-16 09:03 | disposition home or self-care (01) ==
PROVIDERS: Emergency Provider Student in an Organized Health Care Education/Training Program; PCP Family Medicine
DX: J06.9 Acute upper respiratory infection, unspecified (principal); B97.89 Other viral agents as the cause of diseases classified elsewhere; F17.210 Nicotine dependence, cigarettes, uncomplicated; Z86.19 Personal history of other infectious and parasitic diseases; Z88.1 Allergy status to other antibiotic agents; Z88.2 Allergy status to sulfonamides; Z88.8 Allergy status to other drugs, medicaments and biological substances
CPT/HCPCS: 81001; 81025; 87631; 96361; 96374; 99284